=== PATIENT | male | born 1975 | race African-American/Black ===

== ENCOUNTER 2022-01-10 23:55 | Emergency (ER) | payer SELFPAY ==
[~2022-01-10] VITALS: Ht 190.5 cm; Wt 68.0 kg
[2022-01-11 00:15] VITALS: BP 122/86
--- NOTE | 2022-01-11 00:18 | NUR ---
PT GIVEN SOCKS, SENT TO LOBBY
--- NOTE | 2022-01-11 03:18 | NUR ---
PT TAKEN TO BED #3
--- NOTE | 2022-01-11 03:20 | NUR ---
RECEIVED PT IN BED 3, HERE FOR MED REFILL. NO OTHER S/S NOTED.
[2022-01-11] MEDS ORDERED: BUPR300T70 PO (03:33)
[2022-01-11 03:45] VITALS: BP 122/86
--- NOTE | 2022-01-11 03:45 | NUR ---
Patient discharged with v/s stable. Written and verbal after care instructions given and explained. Patient alert, oriented and verbalized understanding of instructions. Ambulatory. All questions addressed prior to discharge. ID band removed. Patient advised to follow up with Psych/ PMD. Rx for Wellbutrin po given. Patient educated on indication of medication including possible reaction and side effects. Opportunity to ask questions provided and answered.
== END 2022-01-11 03:45 | disposition home or self-care (01) ==
LOC: MED 23:55
DX: F32.A Depression, unspecified (principal); Z76.0 Encounter for issue of repeat prescription
CPT/HCPCS: 99281

== ENCOUNTER 2022-01-21 18:25 | Emergency (ER) | payer SELFPAY ==
[~2022-01-21] VITALS: Ht 190.5 cm; Wt 68.9 kg
[~2022-01-21 18:25] MED LIST: BUPR300T70 PO
[2022-01-21 18:55] VITALS: BP 128/87
--- NOTE | 2022-01-21 19:08 | NUR ---
NOTIFIED BY AMOL GIORDANO THAT PT WAS CALLED IN LOBBY AND OUTSIDE WITH NO ANSWER.
--- NOTE | 2022-01-21 20:29 | NUR ---
PT FOUND OUTSIDE WAITING IN CHAIR.
--- NOTE | 2022-01-21 21:43 | NUR ---
PT TAKEN TO CHAIR B
--- NOTE | 2022-01-21 21:43 | NUR ---
PT TO CHAIR B
--- NOTE | 2022-01-21 22:31 | NUR ---
Dr. Mcmanus examining patient.
[2022-01-21] MEDS ORDERED: BUPR150T12 PO (22:39)
--- NOTE | 2022-01-21 22:42 | NUR ---
Patient discharged with v/s stable. Written and verbal after care instructions given and explained. Patient alert, oriented and verbalized understanding of instructions. Ambulatory with steady gait. All questions addressed prior to discharge. ID band removed. Patient advised to follow up with PMD. Rx of WELLBUTRIN given. Patient educated on indication of medication including possible reaction and side effects. Opportunity to ask questions provided and answered.
== END 2022-01-21 22:42 | disposition home or self-care (01) ==
LOC: MED 18:25
DX: Z76.0 Encounter for issue of repeat prescription (principal); Z98.890 Other specified postprocedural states
CPT/HCPCS: 99281